=== PATIENT | female | born 1990 | race Two or more races ===

== ENCOUNTER 2019-05-15 15:01 | Emergency (ER) | payer MEDICAID ==
[~2019-05-15] VITALS: Ht 157.5 cm; Wt 56.7 kg
[2019-05-15] MEDS ORDERED: MACROBID100 MG ORAL (15:16)
--- NOTE | 2019-05-15 15:29 | Emergency Room Report ---
History of Present Illness General Chief Complaint: Female Urogenital Problems Source: Patient Present Illness HPI 28 YO Female presents to the ED c/o intermittent 6/10 lower abdominal cramping sensation x 1 week. pt. reports some episodes up to a 9/10 in severity. Pt. reports currently finishing course of Macrobid for UTI, she says her symptoms have not completely resolved and she has one more day left of abx. She denies . She denies STI and states she was just checked for all when she was initially evaluated and dx'd with UTI. She denies fevers, chills, nausea or vomiting. She denies having pain unilaterally in the adnexa. She reports urinary frequency. She denies low back pain. Pt. with pmhx of fibromyalgia, depression and anxiety. Allergies: Coded Allergies: CIPROFLOXACIN (Verified Allergy, Unknown, 05/15/19) Patient History Past Medical History: see triage record, psych hx - depression and anxiety. fibromyalgia Past Surgical History: none Pertinent Family History: none Now: No Reviewed Nursing Documentation: PMH: Agreed; PSxH: Agreed Nursing Documentation-PMH Past Medical History: No History, Except For Hx Gastrointestinal Problems: Yes - IBS History Of Psychiatric Problem: Yes - depression anxiety Review of Systems All Other Systems: negative except mentioned in HPI Physical Exam Vital Signs Date Time Temp Pulse Resp B/P (MAP) Pulse Ox O2 Delivery O2 Flow Rate FiO2 05/15/19 15:09 98.2 81 17 128/81 (97) 98 Room Air Sp02 EP Interpretation: reviewed, normal General Appearance: no apparent distress, alert, GCS 15, non-toxic Head: normocephalic, atraumatic Eyes: bilateral eye normal inspection, bilateral eye PERRL ENT: hearing grossly normal, normal voice Neck: full range of motion Respiratory: lungs clear, normal breath sounds, speaking full sentences Cardiovascular #1: regular rate, rhythm Gastrointestinal: normal bowel sounds, non tender, soft, non-distended, no guarding Rectal: deferred Genitourinary: normal inspection, no CVA tenderness Musculoskeletal: back normal, gait/station normal, normal range of motion, non- tender Neurologic: alert, oriented x3, responsive, motor strength/tone normal, sensory intact, normal gait, speech normal, grossly normal Psychiatric: judgement/insight normal Skin: no rash Lymphatic: no adenopathy Medical Decision Making PA Attestation Dr. Tierney is my supervising Physician whom patient management has been discussed with. Diagnostic Impression: Primary Impression: Painful bladder spasm ER Course 28 YO Female presents to the ED c/o intermittent 6/10 lower abdominal cramping sensation x 1 week. pt. reports some episodes up to a 9/10 in severity. Pt. reports currently finishing course of Macrobid for UTI, she says her symptoms have not completely resolved and she has one more day left of abx. She denies . She denies STI and states she was just checked for all when she was initially evaluated and dx'd with UTI. She denies fevers, chills, nausea or vomiting. She denies having pain unilaterally in the adnexa. She reports urinary frequency. She denies low back pain. Pt. with pmhx of fibromyalgia, depression and anxiety. Ddx considered but are not limited to UTi , Pyelo, STI, Stone, Cystitis, , ectopic, ovarian cyst. blader spasm just to name a few. Vital signs: are WNL, pt. is afebrile H&PE are most consistent with UTI ORDERS: - UA labs are attached ---elevated inflammatory markers with occasional bacteria. ED INTERVENTIONS: Pyridium PO. DISCHARGE: At this time pt. is stable for d/c to home. Will provide printed patient care instructions, and any necessary prescriptions. Care plan and follow up instructions have been discussed with the patient prior to discharge. Labs Test 05/15/19 15:42 Urine Color Pale yellow Urine Appearance Clear Urine pH 8 (4.5-8.0) Urine Specific [place] 1.010 (1.005-1.035) Urine Protein Negative (NEGATIVE) Urine Glucose (UA) Negative (NEGATIVE) Urine Ketones Negative (NEGATIVE) Urine Blood Negative (NEGATIVE) Urine Nitrite Negative (NEGATIVE) Urine Bilirubin Negative (NEGATIVE) Urine Urobilinogen Normal MG/DL (0.0-1.0) Urine Leukocyte Esterase 3+ (NEGATIVE) Urine RBC 0-2 /HPF (0 - 2) Urine WBC 2-4 /HPF (0 - 2) Urine Squamous Epithelial Cells Moderate /LPF (NONE/OCC) Urine Bacteria Occasional /HPF (NONE) Urine HCG, Qualitative Negative (NEGATIVE) Last Vital Signs Date Time Temp Pulse Resp B/P (MAP) Pulse Ox O2 Delivery O2 Flow Rate FiO2 05/15/19 15:09 98.2 81 17 128/81 (97) 98 Room Air Disposition: HOME, SELF-CARE Condition: Stable Scripts Phenazopyridine Hcl* (PYRIDIUM*) 200 Mg Tablet 200 MG ORAL THREE TIMES A DAY for 3 Days, #9 TAB 0 Refills Prov: Tran Reyes 05/15/19 Patient Instructions: Urinary Tract Infection Tran Reyes May 15, 2019 15:29
--- NOTE | 2019-05-15 15:33 | NUR ---
ED Nurse Note: pt presnts to ED c/o UTI pain. pt has been taking macrobid and ahs 2 days left but symptoms have not improved. pt reports pain and bleeding wtih urination. the p is in the front, suprapubic region and comes and goes. when its at it's worst, pt rates the pain 9/10.
[2019-05-15 16:01] LABS: APPEARANCE,URINE CLEAR; BILIRUBIN, URINE NEGATIVE (NEGATIVE); COLOR,URINE PALE YELLOW; GLUCOSE, URINE (UA) NEGATIVE (NEGATIVE); KETONES,URINE NEGATIVE (NEGATIVE); LEUKOCYTE ESTERASE ,URINE 3+ (NEGATIVE); NITRITE,URINE NEGATIVE (NEGATIVE); PH,URINE 8 (4.5-8.0); PROTEIN,URINE NEGATIVE (NEGATIVE); UROBILINOGEN,URINE NORMAL MG/DL (0.0-1.0)
[2019-05-15 16:07] VITALS: BP 128/81
[2019-05-15] MEDS ORDERED: Phenazopyridine 200mg tab ORAL ONE (16:15)
[2019-05-15] MEDS ORDERED: PHENAZOPYRIDIN200 MG ORAL (16:31)
[2019-05-15] MEDS ORDERED: GABAPENTIN100 MG ORAL (16:34)
[2019-05-15] MEDS ORDERED: BUPROPION HCL150 M3 ORAL (16:35)
--- NOTE | 2019-05-15 16:37 | NUR ---
ED Nurse Note: Pt cleared by health care Provider for discharge. DC instructions/prescription was given and explained to pt and verbalized understanding of teachings. All medical deviecs such as ID band removed. Pt is AAO x4, ambulatory and left with all personal belongings.
[2019-05-15 16:38] VITALS: BP 128/81
== END 2019-05-15 16:33 | disposition home or self-care (01) ==
LOC: EMR 16:29
DX: N32.89 Other specified disorders of bladder (principal); Z88.8 Allergy status to other drugs, medicaments and biological substances; F32.9 Major depressive disorder, single episode, unspecified; F41.9 Anxiety disorder, unspecified; M79.7 Fibromyalgia
CPT/HCPCS: 81003; 81025; Z7502; 99283